=== PATIENT | female | born 1950 | race Caucasian/White ===

== ENCOUNTER 2021-03-17 07:58 | Day surgery (SDC) | payer MEDICARE, OTHER, SELFPAY ==
--- NOTE | 2021-03-16 10:55 | HO.ANESPROP2 ---
Documented by User: Dary Medina NP 03/16/21 10:55 HPI - Anesthesia Eval Consult details Narrative: 70yo F for Colonoscopy [facility] Past Medical History Medical History (Updated 03/12/21 @ 08:29 by Kiley Villalobos, RN) Hepatocellular carcinoma HTN (hypertension) Varicose vein of leg Surgical History Surgical History (Updated 03/12/21 @ 08:33 by Kiley Villalobos, RN) Hx of cholecystectomy Hx of colonoscopy Hx of resection of liver Social History Social History Patient Tobacco Use Status: Never used Tobacco Use of substances other than those prescribed or required for medical reasons: No Are you DNR?: No Advance Directives: No Advance Directives Information Provided: Yes Recently lost weight without trying: No Nutrition Risks: No Nutritional Risk Meds Allergies Allergy/AdvReac Type Severity Reaction Status Date / Time No Known Allergies Allergy Verified 03/12/21 08:31 Home Medications Medication Instructions Recorded Confirmed Last Taken Type losartan 25 mg tablet 25 mg PO DAILY 03/12/21 03/12/21 Unknown History lovastatin 20 mg tablet 20 mg PO DAILY 03/12/21 03/12/21 Unknown History potassium chloride 20 mEq 20 meq PO DAILY 03/12/21 03/12/21 Unknown History tablet,extended release Exam Exam Date and Time: March 16, 2021 1055 Assessment and Plan Assessment Anesthesia Assessment: Chart Reviewed Documented by User: Roz Atkins MD 03/17/21 10:13 [facility] Past Medical History Medical History (Updated 03/12/21 @ 08:29 by Kiley Villalobos RN) Hepatocellular carcinoma HTN (hypertension) Varicose vein of leg Family History Family history of problems with anesthesia: No Surgical History Surgical History (Updated 03/12/21 @ 08:33 by Kiley Villalobos, RN) Hx of cholecystectomy Hx of colonoscopy Hx of resection of liver History of Problems with Anesthesia: No Social History Social History Patient Tobacco Use Status: Never used Tobacco Use of substances other than those prescribed or required for medical reasons: No Are you DNR?: No Advance Directives: No Advance Directives Information Provided: Yes Recently lost weight without trying: No Nutrition Risks: No Nutritional Risk Meds Allergies Allergy/AdvReac Type Severity Reaction Status Date / Time No Known Allergies Allergy Verified 03/12/21 08:31 Home Medications Medication Instructions Recorded Confirmed Last Taken Type losartan 25 mg tablet 25 mg PO DAILY 03/12/21 03/12/21 Unknown History lovastatin 20 mg tablet 20 mg PO DAILY 03/12/21 03/12/21 Unknown History potassium chloride 20 mEq 20 meq PO DAILY 03/12/21 03/12/21 Unknown History tablet,extended release Exam Height,Weight and Vital Signs: Height 5 ft 3 in Weight 61.235 kg Vital Signs Temp Pulse Resp BP Pulse Ox 03/17/21 08:44 98.4 F 63 16 145/67 H 97 Airway Mallampati Class: II TM Dist: >3cm Neck ROM: Full Loose/Missing/Broken Teeth: No (Dental work on top) Heart: RRR Lungs: CTAB Assessment and Plan Assessment Anesthesia Assessment: Anesthesia Plan Discussed Final Anesthetic Review Family History of Problems with Anesthesia: No History of Problems with Anesthesia: No NPO: Yes ASA Class: II Final Preanesthetic Review: No Changes in Pt Med Stat, Meds/Allgs Chart Reviewed, Consent Obtained/Reviewed and Anes Risks/Benef Reviewed Patient Risk: Low Procedure Risk: Low Assessment/Block/Sedation in SS: Assess/Block/Sedation-SS Anesthetic Plan Anesthetic Plan: MAC: Disposition: Standard PACU
[2021-03-17 08:44] VITALS: BP 145/67; PULSE 63; RESP 16; TEMP 36.9; O2SAT 97; BMI 23.9
[2021-03-17] MEDS: Lactated Ringers 1,000 ML 100 ML IVCONT (09:12)
[2021-03-17] MEDS: Sodium Phosphate,Mono-Dibasic 133 ML ENEMA PR (09:13)
--- NOTE | 2021-03-17 09:49 | MHC.SHP ---
Pre-Procedural Eval Section A Date of Service: 03/17/21 Section B Chief Complaint: screening Details of Present Illness: see H&P no changes Relevant Family History (Specify if Yes): No Relevant Social History: None Present Medications: see Short Stay Collaborative assessment Medical History: No relevant PMH Allergies: Allergies Allergy/AdvReac Type Severity Reaction Status Date / Time No Known Allergies Allergy Verified 03/12/21 08:31 Review of Systems Sugical H&P ROS: Negative: Constitution, Cardiovascular, Respiratory, Neurological, Psychiatric, Hem-Onc, Allergic/Immunologic, Gastrointestinal, Genitourinary, Musculoskeletal, Integumentary, Endocrine and Eyes/Ears/Nose/Throat Exam Surgical H&P Exam: Normal: HEENT, Normal: Heart, Normal: Lungs, Normal: Extremities, Normal: Abdomen, Normal: Skin and Normal: Neurological Plan Diagnosis/Plan: Unchanged I have reviewed the history and physical and performed a pertinent physical examination on my patient. No changes have occurred unless specified.
--- NOTE | 2021-03-17 10:19 | PM.OP ---
Brief Operative Note Date of Service: 03/17/21 Pre-op diagnosis: screening Post-op diagnosis: same (colon polyps) Procedure: colonosocpy Surgeon: John Cheng Anesthesia: MAC Was an [employer] used for this Procedure?: No Estimated blood loss (mL): 2 Pathology: other (multiple polyps) Condition: stable Disposition: PACU
[2021-03-17 10:22] VITALS: BP 123/67; PULSE 75; RESP 16; TEMP 36.8; O2SAT 99
[2021-03-17 10:37] VITALS: BP 132/78; PULSE 67; RESP 16; TEMP 36.8; O2SAT 97
--- NOTE | 2021-03-17 17:54 | OP_ITS ---
SURGEON: oJhn Cheng MD INDICATIONS: Colon cancer screening and prior history of adenomatous colon polyps. PREOPERATIVE DIAGNOSIS: POSTOPERATIVE DIAGNOSIS: PROCEDURE PERFORMED: Colonoscopy to the terminal ileum with biopsy and snare polypectomy. ESTIMATED BLOOD LOSS: COMPLICATIONS: ANESTHESIA: ASSISTANTS: SPECIMENS: MEDICATIONS: Monitored anesthesia care. DESCRIPTION OF PROCEDURE: History and physical performed. The risks and benefits of the procedure were explained to the patient. Informed consent was obtained. The patient was placed in left lateral decubitus position. A digital rectal exam was performed and was found to be normal. The Olympus pediatric video colonoscope was introduced into the rectum and advanced to the cecum without difficulty. The cecum was identified by transillumination, palpation, and identification of ileocecal valve. Examination was performed and the scope was removed. She tolerated the procedure well and was taken to recovery area in stable condition. FINDINGS: The terminal ileum was normal. The visualized colonic mucosa was normal. The quality of prep was good. There was mild sigmoid diverticulosis. Retroflexed examination was normal. Multiple colonic polyps were present. Two in the cecum measuring less than 5 mm were removed with biopsy forceps. At 70 cm, a single polyp measuring 8 mm was snared. At 15 cm, a single polyp measuring 6 mm was snared. Two rectal polyps were removed, one with a snare measuring 6 mm, one with a biopsy forceps measuring less than 5 mm. IMPRESSION: Colon polyps. RECOMMENDATION: Follow up the biopsy results. MD LEXI Sevilla/MARZENA / [id number]
== END 2021-03-17 11:20 | disposition home or self-care (01) ==
PROVIDERS: PCP Internal Medicine; Visit Provider Internal Medicine Gastroenterology
PROC: 0DJD8ZZ Inspection of Lower Intestinal Tract, Via Natural or Artificial Opening Endoscopic (ICD-10-PCS; CPT 45378; principal; 2021-03-17 09:40)
DX: Z12.11 Encounter for screening for malignant neoplasm of colon (principal); Z86.010 Personal history of colon polyps; D12.0 Benign neoplasm of cecum; D12.4 Benign neoplasm of descending colon; D12.7 Benign neoplasm of rectosigmoid junction; D12.8 Benign neoplasm of rectum; I10 Essential (primary) hypertension; I83.90 Asymptomatic varicose veins of unspecified lower extremity; Z90.49 Acquired absence of other specified parts of digestive tract; Z85.05 Personal history of malignant neoplasm of liver; Z79.899 Other long term (current) drug therapy
CPT/HCPCS: 45385; 45380; 88305